=== PATIENT | male | born 1990 | race Caucasian/White ===

== ENCOUNTER 2016-05-16 15:51 | Emergency (ER) | payer OTHER ==
[~2016-05-16] VITALS: Ht 188 cm; Wt 102.3 kg
[2016-05-16 15:54] VITALS: BP 171/107; PULSE 97; TEMP 98
== END 2016-05-16 16:56 | disposition home or self-care (01) ==
LOC: COL.ER 15:51
DX: S31.811A Laceration without foreign body of right buttock, initial encounter (principal); W25.XXXA Contact with sharp glass, initial encounter